=== PATIENT | female | born 1975 | race Caucasian/White ===

== ENCOUNTER → 2016-04-07 | Outpatient (CLI) | payer OTHER ==
[~2016-04-07] MED LIST: PERCOCET 5/3251 EACH PO; PRENATAL PLUS1 TA1 PO
[2016-04-07 11:09] LABS: HEMOGLOBIN 12.3 g/dL (12.2-16.2); LYMPH # 1.3 K/mm3 (0.7-4.5); LYMPH % 18.6 % (10-50.0)
[2016-04-07 11:46] LABS: ABO BLOOD TYPE A; RH BLOOD TYPE POSITIVE
[2016-04-08 08:38] LABS: HIV Screen 4th Generation wRfx Non Reactive (Non Reactive)
[2016-04-09 08:39] LABS: Rapid Plasma Reagin, Quant Non Reactive (NonRea<1:1)
[2016-04-09 14:35] LABS: HBsAg Screen Negative (Negative)
== END ==
LOC: LAB 10:43
PROVIDERS: Nurse Practitioner Obstetrics & Gynecology
DX: Z34.80 Encounter for supervision of other normal pregnancy, unspecified trimester (principal)
CPT/HCPCS: G0432

== ENCOUNTER → 2016-06-30 | Outpatient (CLI) | payer OTHER ==
--- NOTE | 2016-06-30 15:59 | RADIOLOGY REPORT PS360 ---
US PREG COMP: INDICATION: 20 week gestation. ANATOMY US ORDERING PHYSICIAN: Lucas Zavala MD PATIENT AGE: 41 years TECHNIQUE: ultrasound transabdominal scanning. COMPARISON: No previous relevant studies. FINDINGS: Single viable intrauterine gestation. Cephalic position. Placenta: Anterior placenta grade 1. There is average amount fluid. The cervix appears satisfactory. Closed and measuring 4 cm in length. Complete survey performed and was unremarkable on the submitted images as in PACS. No discrete anomalies identified on survey imaging by technologist. Active fetus. Three-vessel cord with satisfactory umbilical cord insertion. 4- chamber heart noted. Survey of brain & ventricles. Face and neck survey unremarkable. Diaphragm and chest views unremarkable. Abdomen: Both kidneys noted and unremarkable. Stomach noted and satisfactory. Spine: Survey of the spine satisfactory with no anomalies identified nor imaged. Both arms and legs noted. Amniotic Fluid: Adequate. Maternal adnexa: No significant findings. Measurements: Average ultrasound age 21 weeks 0 days. Gestational Age 20 weeks 5 days. Estimated due date by ultrasound age 911/10/2016. Estimated weight 363 grams. BPD = 21 weeks 4 days OFD = 21 weeks 4 days HC = 20 weeks 6 days AC = 20 weeks 6 days FL = 20 weeks 2 days Heart Rate = 150 bpm Cerebellum = 20 weeks 2 days Humerus = 20 weeks 5 days HC/AC is 1.18. CI is 78%. FL/BPD is 65%. FL/AC is 21%. IMPRESSION: There is a single live fetus present in cephalic presentation with an average ultrasound age of 21 weeks 0 days. No anatomic abnormalities apparent. Please see above for detail
== END ==
LOC: RAD 14:47
DX: Z36 Encounter for antenatal screening of mother (principal)

== ENCOUNTER 2016-11-14 02:38 | Inpatient (IN) | payer OTHER ==
[~2016-11-14] VITALS: Ht 167.6 cm; Wt 81.6 kg
[2016-11-14 05:04] VITALS: BP 132/86
[2016-11-14 05:47] LABS: LYMPH # 1.3 K/mm3 (0.7-4.5)
[2016-11-14 05:55] LABS: HEMOGLOBIN 9.6 g/dL (12.2-16.2)
[2016-11-14 06:34] LABS: ABO BLOOD TYPE A; RH BLOOD TYPE POSITIVE
[2016-11-14 07:33] VITALS: BP 127/81
--- NOTE | 2016-11-14 07:59 | LABOR NOTE ---
Laboring Subjective Subjective Date 11/14/16 Time 0757 Subjective: Pt is having regular contractions Laboring Objective Objective NST: Reactive Contractions: q 2-3 minutes Cervical dilation: 3 Effacement: 75% Station: -2 Membranes are: Artificially ruptured (with clear fluid) Fetus monitoring? Yes Type: External Laboring Assessment Assessment Progressing? Yes Cephalopelvic disproportion? No Problem List: 1. Delivery normal Laboring Plan Plan Anethesia for epidural? No Continue to labor down? Yes Plan for ? No Continue to monitor? Yes Start pushing? No at 0756
--- NOTE | 2016-11-14 10:11 | LABOR NOTE ---
Laboring Subjective Subjective Date 11/14/16 Time 1010 Subjective: Pt is having regular contractions Laboring Objective Objective NST: Reactive Contractions: q 2-3 minutes Cervical dilation: 5-6 Effacement: 100% Station: -1 Membranes are: Artificially ruptured Fetus monitoring? Yes Type: External Laboring Assessment Assessment Progressing? Yes Cephalopelvic disproportion? No Problem List: 1. Delivery normal Laboring Plan Plan Anethesia for epidural? No Continue to labor down? Yes Plan for ? No Continue to monitor? Yes Start pushing? No at 1010
--- NOTE | 2016-11-14 11:50 | Delivery Note ---
Delivery note Delivery date: 11/14/16 Delivery time: 1133 Anesthesia: None Was labor medically induced? Yes Method for inducing labor: Oxytocin Gestational age in weeks: 39 weeks Days: 4 days Delivery prior to 39 weeks? No Sex: male score at one minute: 3 at 5 minutes: 9 Type of suction: bulb AF: Clear fluid LAC or MLE: LAC (1st degree) Delivery procedure: Normal Delivery Delivery of placenta: spontaneous Clinical note She is a 41-year-old 6 now para 3 aborta 3 who was 39 and 4 weeks gestational age. She was having occasional contractions as well as pressure. She had a previous large infant and as result of that we elected to induce her labor at term. She was started on IV oxytocin and had her membranes ruptured. She progressed to full dilation and delivered spontaneously a liveborn male child at 11:33 AM in the morning of November 14, 2016. On delivery the head it was noted that there was a tight nuchal cord and I elected to just deliver the baby with the cord and intact. The anterior shoulder delivered followed by the rest of the infant's body atraumatically. The cord was reduced. The cord was clamped and cut and the baby to the resuscitation table. We bag and mask the baby for about a minute and he revive spontaneously with just stimulation and bag and mask. We assigned Apgars of 3 at 1 minute and 9 at 5 minutes. I then obtained cord blood as well as cord pH. The baby was a liveborn male child weighing 8 lbs. 9 oz. Using gentle traction on the cord and countertraction on the fundus I was able to easily deliver the placenta intact. It had a normal three-vessel cord. She had a small posterior laceration of the vagina and I used one atybeo-cb-[id number] 3- 0 Vicryl Rapide suture to close the small defect. She has a positive blood, she is rubella immune and she was group B streptococcus positive. She did receive IV antibiotics while in labor. She plans to breast-feed. Her trencher driver Dr. Hernandez. Estimate a blood loss was 400 mL. at 9410
--- NOTE | 2016-11-14 11:50 | Delivery Note ---
Delivery note Delivery date: 11/14/16 Delivery time: 1133 Anesthesia: None Was labor medically induced? Yes Method for inducing labor: Oxytocin Gestational age in weeks: 39 weeks Days: 4 days Delivery prior to 39 weeks? No Sex: male score at one minute: 3 at 5 minutes: 9 Type of suction: bulb AF: Clear fluid LAC or MLE: LAC (1st degree) Delivery procedure: Normal Delivery Delivery of placenta: spontaneous Clinical note She is a 41-year-old 6 now para 3 aborta 3 who was 39 and 4 weeks gestational age. She was having occasional contractions as well as pressure. She had a previous large infant and as result of that we elected to induce her labor at term. She was started on IV oxytocin and had her membranes ruptured. She progressed to full dilation and delivered spontaneously a liveborn male child at 11:33 AM in the morning of November 14, 2016. On delivery the head it was noted that there was a tight nuchal cord and I elected to just deliver the baby with the cord and intact. The anterior shoulder delivered followed by the rest of the infant's body atraumatically. The cord was reduced. The cord was clamped and cut and the baby to the resuscitation table. We bag and mask the baby for about a minute and he revive spontaneously with just stimulation and bag and mask. We assigned Apgars of 3 at 1 minute and 9 at 5 minutes. I then obtained cord blood as well as cord pH. The baby was a liveborn male child weighing 8 lbs. 9 oz. Using gentle traction on the cord and countertraction on the fundus I was able to easily deliver the placenta intact. It had a normal three-vessel cord. She had a small posterior laceration of the vagina and I used one qzjhtn-oo-qcgxo 3- 0 Vicryl Rapide suture to close the small defect. She has a positive blood, she is rubella immune and she was group B streptococcus positive. She did receive IV antibiotics while in labor. She plans to breast-feed. Her veneer marker Dr. Hernandez. Estimate a blood loss was 400 mL. at 2117
[2016-11-14 21:22] VITALS: BP 118/75
--- NOTE | 2016-11-15 07:33 | ACUTE CARE PROGRESS NOTE (QUA) ---
Progress Notes Subjective Date 11/15/16 Time 0731 Note She continues to do well this morning. She is eating and drinking and entering. She is breast feeding. Her lochia is normal. Patient/family reports: feeling better, no complaints Objective Findings Last VS-Temp:98.4 B/P:118/75 Pulse:81 Resp:18 SaO2: Last weight lbs:180 oz:0 K.648 Method:Stated Laboratory Tests 11/15/16 0625: Hgb 10.0 L, Hct 30.2 L 11/14/16 1150: Cord Blood pH 7.33 L Exam General appearance: normal appearance, alert, awake, no acute distress Reviewed: vital signs, lab results Assessment/Plan Problem List 1. Delivery normal Patient condition Improving, Stable Plan: continue current care This inpt stay is expected to cross 2 MNs from start of care Yes Comments: She is doing very well this morning. We'll plan to send her home tomorrow. at 0732
[2016-11-15 09:15] VITALS: BP 112/72
[2016-11-15 19:52] VITALS: BP 131/80
[2016-11-16 07:49] VITALS: BP 121/77
--- NOTE | 2016-11-16 08:13 | ACUTE CARE PROGRESS NOTE (QUA) ---
Progress Notes Subjective Date 11/16/16 Time 0810 Note She is doing very well this morning. She is eating and drinking and ambulating. She is breast-feeding. Her lochia is normal. Patient/family reports: feeling better, no complaints Objective Findings Last VS-Temp:99.1 B/P:131/80 Pulse:66 Resp:18 SaO2: Last weight lbs:180 oz:0 K.648 Method:Stated Exam General appearance: normal appearance, alert, awake, no acute distress Reviewed: vital signs, lab results Assessment/Plan Problem List 1. Delivery normal Patient condition Improving, Stable Plan: continue current care, initiate discharge plan This inpt stay is expected to cross 2 MNs from start of care Yes Comments: She continues to do very well. We'll plan to send her home today. at 0812
--- NOTE | 2016-11-16 08:18 | Discharge Summary ---
Discharge Summary Admission date: 11/14/16 Discharge date: 11/16/16 Discharge diagnoses: Term , spontaneously vaginal delivery, advanced maternal age Clinical note: She is a 41-year-old 6 para 3 aborta 3 who was 39 weeks gestational age. She was feeling pressure as well as occasional contractions. As result of that she was brought in for augmentation of labor. Course in hospital: She was started on IV oxytocin had her membranes ruptured. She progressed to full dilation and delivered spontaneously a liveborn male child at 11:33 AM on the morning of November 14, 2016. The baby weighed 8 lbs. 9 oz. and was 19 inches long. He had Apgars of 3 at minute and 9 at 5 minutes. She had a small posterior vaginal tear that was repaired with a single roofxp-as-hdtkv 3-0 Vicryl Rapide suture. She has done well and has remained afebrile throughout her hospitalization. She is eating and drinking and ambulating. She is breast- feeding. She has a positive blood, she is rubella immune and was group B strep coccus positive. She did receive IV antibiotics while in labor. Laboratory Tests 11/15/16 0625: Hgb 10.0 L, Hct 30.2 L 11/14/16 1150: Cord Blood pH 7.33 L 11/14/16 0515: MCH 28.8 11/14/16 0515: WBC 9.1, RBC 3.34 L, Hgb 9.6 L, Hct 28.4 L, MCV 85.9, RDW 13.1, Plt Count 228 , MPV 10.0, Gran % 77.5, Gran # 7.1, Lymphocytes % 14.0, Monocytes % 6.6, Eosinophils % 1.6, Basophils % 0.3, Lymphocytes # 1.3, Monocytes # 0.6, Eosinophils # 0.2, Basophils # 0.0, PUBS MCHC 33.5, Antibody Screen NEGATIVE, Miscellaneous Test POSITIVE Plans for ongoing care: She is discharged home to follow-up with me in approximately 2 weeks' time. Discharge medications She'll continue with her vitamins and iron. She will take over-the- counter analgesics for any pain. DC/follow-up instructions She was given the usual instructions with respect to limiting her activity, driving and sexual activity. Condition at discharge Stable and improved at 7637
== END 2016-11-16 11:35 | disposition home or self-care (01) | DRG 775 ==
LOC: 2ND 02:38 → OB 02:44
PROVIDERS: Nurse Practitioner Obstetrics & Gynecology
PROC: 10E0XZZ Delivery of Products of Conception, External Approach (ICD-10-PCS; principal; 2016-11-14)
PROC: 0HQ9XZZ Repair Perineum Skin, External Approach (ICD-10-PCS; principal; 2016-11-14)
DX: O70.0 First degree perineal laceration during delivery (principal); Z37.0 Single live birth; Z3A.39 39 weeks gestation of pregnancy
CPT/HCPCS: J0290

== ENCOUNTER 2017-01-19 15:48 | Observation (INO) | payer OTHER ==
[~2017-01-19] VITALS: Ht 167.6 cm; Wt 70.3 kg
--- OUTSIDE RECORDS SUMMARY | 2017-01-19 15:51 | External Medical Summary Rpt | CCD ---
Author Author [employer] Organization [employer] Address Unknown Phone Unavailable Purpose Continuity of Care Document - through 2016
--- OUTSIDE RECORDS SUMMARY | 2017-01-19 15:51 | External Medical Summary Rpt | CCD ---
Demographics Preferred Language Nepali Marital Status Unknown Baptism Affiliation Unknown Race Unknown Ethnic Group Unknown Author Author , MUNIR ARANGO Address Unknown Phone Immunization No patient found.
--- OUTSIDE RECORDS SUMMARY | 2017-01-19 15:51 | External Medical Summary Rpt | CCD ---
Author Author , MNUIR ARANGO Address Unknown Phone [email or web address] Purpose Continuity of Care Document - through 2016
--- OUTSIDE RECORDS SUMMARY | 2017-01-19 15:51 | External Medical Summary Rpt | CCD ---
Demographics Preferred Language Spanish Marital Status Unknown Roman Catholic Affiliation Unknown Race Unknown Ethnic Group Unknown Author Author , MUNIR ARANGO Address Unknown Phone Immunization No patient found.
--- OUTSIDE RECORDS SUMMARY | 2017-01-19 15:51 | External Medical Summary Rpt | CCD ---
Author Author , MUNIR ARANGO Address Unknown Phone [email or web address] Purpose Continuity of Care Document - through 2016
[2017-01-19 16:36] VITALS: BP 144/93
--- NOTE | 2017-01-19 16:53 | ACUTE CARE PROGRESS NOTE (QUA) ---
Progress Notes Subjective Date 01/19/17 Time 1648 Note See [facility] H&P. Admitted with RLQ pain. 2 months post . Elevated WBC. Objective Findings Last VS-Temp:99.0 B/P:144/93 Pulse:129 Resp:18 SaO2:95 ROOM AIR Last weight lbs:155 oz:0 K.308 Method:Floor Scales Assessment/Plan Problem List 1. Bandemia without diagnosis of specific infection 2. Abdominal pain, acute, right lower quadrant Patient condition Guarded Plan: See orders. CT. Consult Dr. Zavala. Invanz. This inpt stay is expected to cross 2 MNs from start of care Yes at 0681
[2017-01-19 19:26] VITALS: BP 141/87
[2017-01-19 20:00] VITALS: BP 141/87
[2017-01-19 20:30] VITALS: BP 141/87
--- NOTE | 2017-01-19 22:50 | CONSULT NOTE ---
Standard Demographics Patient Demo Date of Consultation: 01/19/17 Referring Provider: Adriane Mckee MD Reason for Consultation: abdominal pain PRIMARY DIAGNOSIS: ABD PAIN AND FEVER Allergies: Coded Allergies: cephalexin (From KEFLEX) (Intermediate, I-RASH 11/14/16) History of Present Illness Chief Complaint: Abdominal pain History of Present Illness: Patient is a 41-year-old white female who is approximately 9 weeks from normal vaginal delivery. She was in her usual state of health until approximately 3 AM this morning on 01/19/17 at which time she states that she developed sudden onset of sharp and severe stabbing pain in the RIGHT lower quadrant. She was seen and evaluated in her primary care providers office earlier today. She apparently had leukocytosis by fingerstick in the office. She was therefore admitted for inpatient management. She had CT scan performed with oral contrast only. Please note that patient was not given intravenous contrast as she is breast-feeding. CT scan virtual radiology report returned this evening and revealed nonvisualization of the appendix but appendicitis could not be ruled out. By report there was some stranding near the cecum. Surgery was consulted to see the patient for possible appendicitis this evening. Patient describes the abdominal pain as less severe at this time. She has had some anorexia. She describe the location of the pain as diffuse and points out tenderness in the epigastrium, RIGHT upper quadrant, and RIGHT lower quadrant. She denies vomiting or diarrhea. Her forest fire specialist supervisor has been consulted but has not seen the patient as of yet. Past Medical History Denies: CAD. Surgical History Previous Surgery?Y TOOTH EXTRATION 3WKS AGO Allergies Coded Allergies: cephalexin (From KEFLEX) (Intermediate, I-RASH 11/14/16) Medications: Reported Medications MULTIVIT-MIN W/FE-FA ( Multivitamin Tablet) 1 TAB PO DAILY Smoking Hx Tobacco: No Smoker: Never Smoker Type: N/A Packs/day: N/A Are you/the child exposed to second-hand smoke: No Alcohol Alcohol: No Hx of Drug Use Drug Use? No Review of Systems Constitutional Positive for: chills. Skin No: contusions. Immune/allergy No: anaphalaxis. Eyes No: vision loss. ENT No: hearing loss. Respiratory No: shortness of air. Cardiovascular No: chest pain. GI Positive for: abdomen, anorexia. No: diarrhea, nausea, vomitting. (female) No: hematuria. Musculoskeletal No: extremity pain. Heme No: adenopathy. Endocrine No: cold intolerance. Neurological No: change in LOC. Physical Exam Exam General appearance no acute distress, alert, well nourished Respiratory clear to auscultation Cardiovascular normal heart sounds Findings/Data Limited examination patient is alert talkative pleasant in no acute distress. Her abdomen is soft with normal bowel sounds. She has subjective tenderness in the epigastrium and in the RIGHT lower quadrant without guarding or rebound. Plan Plan: Etiology of her abdominal pain and tenderness is somewhat unclear. I will plan to check full set of labs including pancreatic enzymes and liver function tests. She has subjective tenderness and actually more appreciable tenderness at this time in the midepigastrium than in the RIGHT lower quadrant. Appendicitis is a possibility but suspicion at this point based on clinical presentation is low to moderate. I would not pursue immediate operative intervention. As she is breast- feeding will refrain from iodinated intravenous contrast at this time. If overnight the possibility of appendicitis still remains equivocal would recommend repeat CT scan with iodinated contrast with the understanding that she may need to discard milk for a period of time. At this point, possible etiologies are widespread and could include, but not limited to, appendicitis, cholecystitis, pancreatitis, enteritis, segmental omental infarction, mesenteric adenitis, gastritis, and gynecologic etiology. Await ObGyn consult. at 2250
[2017-01-19 22:53] LABS: HEMOGLOBIN 10.8 g/dL (12.2-16.2); LYMPH # 1.4 K/mm3 (0.7-4.5); LYMPH % 10.3 % (10-50.0)
[2017-01-20] VITALS (17 sets, daily range): BP systolic 99–166; BP diastolic 56–97
[2017-01-20 07:11] LABS: HEMOGLOBIN 11.1 g/dL (12.2-16.2); LYMPH # 1.2 K/mm3 (0.7-4.5); LYMPH % 14.4 % (10-50.0)
--- NOTE | 2017-01-20 08:06 | RADIOLOGY REPORT PS360 ---
CHEST(2 VIEWS-NOT PORTABLE) INDICATION: Right lower quadrant pain, patient 2 months COMPARISON: None FINDINGS: The lung thapa are well expanded and appear clear of infiltrate. The cardiomediastinal silhouette and vascularity are normal. The costophrenic angles are clear. The bony thorax is normal. IMPRESSION: Normal chest.
--- NOTE | 2017-01-20 08:56 | SURGEON PROGRESS NOTE ---
Subjective data Subjective data: RADHA MONZON is a 41 F .Patient denies complaint of nausea and vomitting.She reports her last pain level as 0 on a 0-10 pain scale. Patient states she feels "tired". Still with some abdominal discomfort. Assessment findings Assessment Exam General appearance: normal appearance, alert ABD: no rebound, soft Comment: Subjective tenderness in epigastrium and right lower quadrant without guarding or rebound. Patient plan Plan: CT with contrast. Additional data: Discussed case with radiology. CT read by staff radiologist. Recommendation is for CT with IV contrast. Discussed risks/benefits with patient. Plan will be for CT with contrast and patient to use formula for 24 hours. at 0855
--- NOTE | 2017-01-20 08:56 | RADIOLOGY REPORT PS360 ---
CT ABD PELVIS W/O CONTRAST COMPARISON: None HISTORY: Patient is 2 months pain right lower quadrant pain TECHNIQUE: Multiaxial scans obtained from hemidiaphragms the pelvic floor and were performed with oral contrast only. Sagittal and coronal reformats were evaluated as well. FINDINGS: The lower lung thapa are clear. Liver spleen stomach pancreas and gallbladder appear grossly normal. There is a hypodense lesion right lobe of the liver near the denice hepatis 2.0 x 1.4 cm in size and likely a hepatic cyst. The adrenal glands are normal. The kidneys are normal in size and there are no calculi and is no obstructive uropathy.. Contrast-filled loops of small bowel appear normal. Do not definite identify the appendix and there is some subtle and questionable pericecal fat stranding noted. There is contrast in axial stool throughout the colon. The uterus is normal size, urinary bladder is partially decompressed. There is no free fluid in pelvis. IMPRESSION: Appendix not deftly identified question some minimal pericecal inflammatory changes and a few is a strong clinical suspicion of possible early appendicitis repeat study with IV contrast would be helpful, I agree the [facility] report. I do not feel that maternal IV contrast will be a significant issue in this lady who is breast-feeding.
--- NOTE | 2017-01-20 08:58 | RADIOLOGY REPORT PS360 ---
US PELVIS-TRANSVAGINAL ONLY COMPARISON: Ultrasound 06/30/2016 HISTORY: Lower abdominal pain, patient is 2 months post vaginal delivery TECHNIQUE: Transvaginal ultrasound FINDINGS: The uterus is normal size and shows homogeneous echogenicity. The endometrial echo is normal. Both ovaries are imaged both appearing grossly normal with satisfactory flow. There is no cul-de-sac fluid. IMPRESSION: Essentially unremarkable ultrasound the pelvis
--- NOTE | 2017-01-20 09:17 | ACUTE CARE PROGRESS NOTE (QUA) ---
Progress Notes Subjective Date 01/20/17 Time 0914 Note The patient has remained stable through the night. See the CT report. She's been seen by Dr. Jeffers. Her pain is RIGHT lower quadrant and epigastric. She has received IV Invanz. Objective Findings Last VS-Temp:98.3 B/P:131/82 Pulse:89 Resp:20 SaO2:97 ROOM AIR Last weight lbs:155 oz:0 K.308 Method:Floor Scales Exam General appearance: normal appearance, alert Cardiovascular: regular rate & rhythm Respiratory: clear to auscultation ABD: soft, rebound (some), tenderness (RIGHT lower quadrant and epiga) Extremities: no peripheral edema Assessment/Plan Problem List 1. Bandemia without diagnosis of specific infection 2. Abdominal pain, acute, right lower quadrant Patient condition Stable Plan: CT with contrast has been recommended. This inpt stay is expected to cross 2 MNs from start of care Yes at 0916
--- NOTE | 2017-01-20 10:06 | RADIOLOGY REPORT PS360 ---
CT ABD PELVIS W/ CONTRAST COMPARISON: CT scan abdomen pelvis 01/19/2017 HISTORY: 2 months , right lower quadrant pain, elevated white count TECHNIQUE: Multiaxial scans obtained from hemidiaphragms the pelvic floor and were performed with IV contrast. Oral contrast from the previous exam yesterday is still present. Sagittal coronal reformats were evaluated as well. FINDINGS: The IV contrast shows the appendix the well visualized showing an enhancing rim measuring 10 to 12 mm in diameter.. There is some periappendiceal haziness as well. There is no evidence of perforation. Study was is otherwise unchanged from yesterday's study. Urinary bladder is well filled at this time. Again there is no free fluid in the pelvis. IMPRESSION: Findings consistent with early acute appendicitis
--- NOTE | 2017-01-20 10:08 | ACUTE CARE PROGRESS NOTE (QUA) ---
Progress note: - CT scan with IV contrast reveals findings consistent with early appendicitis with enlarged enhancing appendix. Plan for urgent appendectomy. at 1007
--- NOTE | 2017-01-20 10:13 | CONSULT NOTE ---
Standard Demographics Patient Demo Date of Consultation: 01/20/17 Referring Provider: Adriane Mckee MD Reason for Consultation: abdominal pain PRIMARY DIAGNOSIS: ABD PAIN AND FEVER Allergies: Coded Allergies: cephalexin (From KEFLEX) (Intermediate, I-RASH 11/14/16) History of Present Illness Chief Complaint: Fever, mild elevation of the white blood cell count, abdominal pain mostly in the RIGHT lower quadrant History of Present Illness: She is a 41-year-old 6 para 3 lady who is well known to me. I have delivered her last children. She is now 9 weeks post vaginal delivery. 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 She was seen by Dr. Mckee and his office and at that time was noted that she had a low-grade temperature as well as a mildly elevated white blood cell count. Her gynecologic examination by Dr. Mckee was benign. As result of the low-grade temperature and leukocytosis she was admitted. Past Medical History Denies: CAD, congestive heart failure, hypertension. Surgical History Previous Surgery?Y TOOTH EXTRATION 3WKS AGO Allergies Coded Allergies: cephalexin (From KEFLEX) (Intermediate, I-RASH 11/14/16) Medications: Reported Medications MULTIVIT-MIN W/FE-FA ( Multivitamin Tablet) 1 TAB PO DAILY Family history Negative for: unknown. Smoking Hx Tobacco: No Smoker: Never Smoker Type: N/A Packs/day: N/A Are you/the child exposed to second-hand smoke: No Alcohol Alcohol: No Hx of Drug Use Drug Use? No Patien't marital status is Patient's support system is excellent Review of Systems Constitutional No: chills, fatigue. Skin No: abrasions. Immune/allergy No: itching. Eyes No: blurry vision. ENT No: nasal congestion. Respiratory No: dyspnea on exertion, shortness of air. Cardiovascular No: palpitations. GI Positive for: abdomen. No: diarrhea, vomitting. (female) Positive for: pelvic pain. No: flank pain. Musculoskeletal No: joint pain. Heme No: adenopathy. Endocrine No: cold intolerance. Neurological No: change in LOC. Psychiatric No: agitation, depression. Systems reviewed and negative: GI, , allergy/immunity, cardiovascular, constitutional, endocrine, Ear/Nose/Throat, eyes, heme, musculoskeletal, neuro, psychiatric, respiratory, skin Physical Exam VS/I&O Vital Signs Date Time Temp Pulse Resp B/P Pulse O2 O2 Flow FiO2 Ox Delivery Rate 01/20 0902 98.3 89 20 131/82 97 01/20 0800 98.3 89 20 131/82 97 ROOM AIR 01/20 0400 98.3 106 16 141/82 98 ROOM AIR 01/19 2030 98.6 97 18 141/87 98 01/20 2000 97 01/20 2000 98.6 97 18 141/87 01/20 2000 98 ROOM AIR 01/19 192 98.6 97 18 141/87 98 ROOM AIR 01/19 1636 99.0 129 18 144/93 95 ROOM AIR I&O 01/20 0700 Intake Total 1105 Output Total Balance 1105 Intake, IV 1105 Patient 155 lb Weight Exam General appearance no acute distress, oriented, well nourished, awake Neck full ROM Respiratory no distress Cardiovascular regular rate and rhythm Abdomen flat, no distention, no rebound, soft Abdomen quadrants normal bowel sounds Genitourinary (female) deferred Extremities no calf tenderness Lymphatic normal neck Musculoskeletal full ROM Neurological no motor deficit Psychiatric normal affect Skin normal color Results labs reviewed Plan Plan: She has just returned from CT scan with IV contrast. We will await the results of his test. On examination she looks well and she says that her pain is improved in the RIGHT lower quadrant. She does complain of some upper RIGHT quadrant pain as well. Her belly is soft and there is no guarding. At this point in time I don't think that she has active appendicitis and she is got better overnight. I reviewed her ultrasound and it was normal. The CT with oral contrast showed some stranding of the fat on the RIGHT side near the appendix but no obvious appendicitis. I think that since she is getting better at this point in time she can probably just go home and follow-up with me. We will await however the results of her CT scan. I don't believe that at this point in time her pain is gynecologic. at 1013
--- NOTE | 2017-01-20 11:57 | Operative Note ---
Surgeon/Diagnoses Surgeon/Noc Technician(s) Date of procedure: 01/20/17 Surgeon: Edward Jeffers Diagnoses Pre-op diagnosis: Acute appendicitis Post-op diagnosis Same Procedure Procedure Procedure: Laparoscopic appendectomy Indications: RADHA MONZON is a 41 year-old Female. 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 She was seen and evaluated in the office late yesterday afternoon and that was found have a mild leukocytosis. She was admitted for inpatient management. She underwent CT scan of the abdomen and pelvis last night with oral contrast only which was equivocal for appendicitis with nonvisualization of the appendix and possible stranding near the cecum. This morning she felt somewhat better but had abdominal pain in the epigastrium and RIGHT lower quadrant. She underwent CT scan with intravenous contrast which revealed findings consistent with non-complicated early appendicitis. Plan was made for appendectomy. Findings: She had a somewhat thickened edematous mildly indurated appendix without exudate , necrosis, or perforation. Procedure Description: Consent was obtained and patient was taken the operating room. She was given preoperative intravenous antibiotics. In the operating room she was placed in a supine position. House catheter was placed for bladder decompression. Abdomen was prepped and draped in the standard surgical fashion. Subumbilical skin incision was made and while performing abdominal wall lifted the Veress needle was inserted. CO2 pneumoperitoneum was achieved to 15 mmHg. 10/11 mm optical trocar was inserted at the umbilicus. Intracranial contents were visualized. She was noted to have some fluid in the pelvis. 5 mm trocar was inserted in the suprapubic location. Additional 5 mm trocar was inserted in the RIGHT upper abdomen. A 0 degree laparoscope was replaced with the 30 degree 5 mm laparoscope inserted via RIGHT upper abdominal trocar site. The appendix was identified. It was somewhat edematous and thickened with mild induration. It was grasped with an endoscopic [place]. Mesoappendix was divided with Cornell ultrasonic harmonic andre with dissection carried down to the appendiceal base. The appendix was divided at its base with an endoscopic VIKRAM linear cutting stapling device. Appendix was placed within an Endo Catch retrieval device and removed from the peritoneal cavity via the umbilical trocar site. Limited irrigation was performed of the pelvis and pericecal location. There was good hemostasis. Trochars were removed as CO2 pneumoperitoneum was evacuated. Fascia at the umbilicus was closed with a 0 Vicryl suture. Local anesthetic was infiltrated. Skin incisions are closed with 4-0 Monocryl in a subcuticular fashion. Steri- Strips and clean dry sterile dressings were applied. EBL (ml): 20 Anesthesia: GETA Specimens: Appendix Disposition Disposition: To PACU at 1158
--- NOTE | 2017-01-20 12:08 | Anesthesia Record ---
Anesthesia Record Part I Total IV fluids: 1200 EBL (ml): 10 Urine Output: 200 B/P: 134/76 % SaO2: 95 Pulse: 105 Resps: 16 Temp: 97.4 Patient is: Drowsy, Stable Stable to PACU at: 1155 at 1207
--- NOTE | 2017-01-20 12:08 | Anesthesia Record ---
Anesthesia Record Part II Discharge time: 1225 Destination: Second Floor PACU nurse assessment review? Yes Patient is: Stable Anesthesia complications? No at 1205
[2017-01-20 12:42] LABS: URINE BILIRUBIN - DIPSTICK NEGATIVE (NEG); URINE BLOOD NEGATIVE (NEG)
[2017-01-21] VITALS: BP 144/79
[2017-01-21 04:00] VITALS: BP 145/80
[2017-01-21 08:00] VITALS: BP 146/86
[2017-01-21 08:01] VITALS: BP 146/86
--- NOTE | 2017-01-21 08:38 | SURGEON PROGRESS NOTE ---
Subjective data Subjective data: RADHA MONZON is a 41 F .Patient denies complaint of nausea and vomitting.She reports her last pain level as 3 on a 0-10 pain scale. Overall patient feels much better. She has no abdominal complaints. Her only complaint is some soreness and discomfort in her shoulders. Denies shortness of breath. Assessment findings Assessment Exam General appearance: normal appearance, alert Respiratory: aerating well, clear to auscultation ABD: soft Patient plan Plan: discharge at 0838
[2017-01-21] MEDS ORDERED: HYDROCODONE/APA1 TA8 PO (08:44)
--- NOTE | 2017-01-21 08:55 | DISCHARGE SUMMARY STANDARD ---
Demographics Admit date: 01/19/17 Discharge date: 01/21/17 History of present illness History of present illness Patient is a 41-year-old white female who is approximately 9 weeks from normal vaginal delivery. She was in her usual state of health until approximately 3 AM on the morning on 01/19/17 at which time she states that she developed sudden onset of sharp and severe stabbing pain in the RIGHT lower quadrant. She was seen and evaluated in her primary care providers office. She had leukocytosis by fingerstick in the office. She was therefore admitted for inpatient management. She had CT scan performed with oral contrast only. Please note that patient was not given intravenous contrast as she is breast-feeding. CT scan virtual radiology report returned in the evening of 01/19 and revealed nonvisualization of the appendix but appendicitis could not be ruled out. By report there was possibly some stranding near the cecum. Surgery was consulted to see the patient for possible appendicitis. She has had some anorexia. She describe the location of the pain as diffuse and points out tenderness in the epigastrium, RIGHT upper quadrant, and RIGHT lower quadrant. Hospital Course Hospital Course: Patient was seen as a surgical consultation in the late evening of 01/19/17. Etiology of her abdominal discomfort was somewhat unclear at that time as her tenderness had somewhat improved and she complained of discomfort in the epigastrium as well as the RIGHT lower quadrant. Therefore plan was to not pursue immediate surgical intervention. Following morning her white blood cell count had actually normalized. Discussion was made with the radiologist regarding utility and benefits of possible repeat CT scan with contrast as her initial CT scan was equivocal. It was felt that the benefits was great and the potential risk was miniscule. She underwent CT scan with IV contrast. This revealed findings consistent with non-complicated appendicitis with an enhancing thickened appendix. Arrangements were then made for surgical intervention. She was taken to the operating room at which time she underwent laparoscopic appendectomy. She was found to have a an edematous slightly indurated somewhat thickened appendix. Please see operative dictation for complete details. Postoperatively she was continued as an inpatient for convalescence. She had expected postoperative pain which was easily controlled. She did have some asymptomatic tachycardia which seemed to be likely associated with pain and with breast pumping. She remained afebrile and tolerating a bland diet without difficulty. Following morning she was doing well and felt much better. Her only complaint was discomfort in both shoulders. She was aerating well and denies shortness of breath or cough or chest pain. It was felt that this was likely secondary to positioning intraoperatively or referred pain from intra-abdominal gas. Arrangements are made for discharge home on postoperative day number 1. Discharge diagnoses Problem List 1. Bandemia without diagnosis of specific infection 2. Abdominal pain, acute, right lower quadrant 3. Appendicitis, acute Medications Medications: Discharge meds are as noted. Patient is given a new prescription for Lortab 5 mg (25) Follow up Follow up in office in: 2 WEEKS with: Edward Jeffers MD at 0855
[2017-01-21 10:54] VITALS: BP 146/86
--- NOTE | 2017-01-21 10:59 | ACUTE CARE PROGRESS NOTE (QUA) ---
Progress Notes Subjective Date 01/21/17 Time 1057 Note See the note by Dr. Jeffers. She is clinically stable and ready for discharge. I did examine her. Objective Findings Last VS-Temp:98.4 B/P:146/86 Pulse:93 Resp:18 SaO2:98 ROOM AIR Last weight lbs:155 oz:0 K.308 Method:Floor Scales Assessment/Plan Problem List 1. Bandemia without diagnosis of specific infection 2. Abdominal pain, acute, right lower quadrant 3. Appendicitis, acute Plan: initiate discharge plan, Dr. Joe's note states that he gave her Lortab. This inpt stay is expected to cross 2 MNs from start of care Yes at 1050
== END 2017-01-21 11:20 | disposition home or self-care (01) ==
LOC: 2ND 15:48
PROVIDERS: Surgery
PROC: 0DTJ4ZZ Resection of Appendix, Percutaneous Endoscopic Approach (ICD-10-PCS; principal; 2017-01-20 11:00)
DX: K35.80 Unspecified acute appendicitis (principal); R63.0 Anorexia; Z88.3 Allergy status to other anti-infective agents
CPT/HCPCS: G0378; J0131; J2405; J2710; Q9967